=== PATIENT | female | born 1975 | race Caucasian/White ===

== ENCOUNTER 2018-06-27 13:24 | Emergency (ER) | payer BC ==
[2018-06-27] MEDS ORDERED: NORMAL SALINE 1000 ML 1,000 ML IV ONE (15:00)
--- NOTE | 2018-06-27 15:00 | ER Document Report ---
ED Medical Screen (RME) - General Chief Complaint: General Weakness Stated Complaint: WEAKNESS Time Seen by Provider: 06/27/18 14:47 TRAVEL OUTSIDE OF THE [place] IN LAST 30 DAYS: No - HPI Notes: 06/27/18 14:58 Patient is a 43-year-old female with a history of PE 11 months ago (completed thinners in January) who presents to the ED complaining of dyspnea on exertion over the last 1-2 weeks with development of chest tightness and feeling of palpitations and weakness over the last 2-3 days. Patient states that this feels like when she had a PE previously. Denies any headache, fever, URI, sore throat, cough, abdominal pain, vomiting/ diarrhea, urinary retention, dysuria, hematuria, back pain, loss of control of bowel or bladder, numbness/tingling, saddle anesthesia, muscle paralysis/ weakness, or rash. I have treated and performed a rapid initial assessment of this patient. A comprehensive ED assessment and evaluation of the patient, analysis of test results and completion of medical decision making process will be conducted by additional ED providers. Reviewed with Dr. De Jesus who recommends CTA being ordered. PHYSICAL EXAMINATION: GENERAL: Well-appearing, well-nourished and in no acute distress. A&Ox4. Answers questions appropriately. LUNGS: Breath sounds clear to auscultation bilaterally and equal. No wheezes rales or rhonchi. HEART: Regular rate and rhythm without murmurs, rubs, gallops. Extremities: No cyanosis, clubbing, or edema b/l. Eze neg b/l. No asymmetry. NEUROLOGICAL: Normal speech, normal gait. PSYCH: Normal mood, normal affect. - Related Data Allergies/Adverse Reactions: amoxicillin [Amoxicillin] Allergy (Intermediate, Verified 06/27/18 13:25) RASH Sulfa (Sulfonamide Antibiotics) Allergy (Intermediate, Verified 06/27/18 13:25) UNKNOWN aspirin Allergy (Verified 06/27/18 13:25) gabapentin [From Neurontin] Allergy (Verified 06/27/18 13:25) EGGS Allergy (Uncoded 06/27/18 13:25) Past Medical History - Social History Chew tobacco use (# tins/day): No Frequency of alcohol use: None Drug Abuse: None - Past Medical History Cardiac Medical History: Denies: Hx Coronary Artery Disease, Hx Heart Attack, Hx Hypertension Pulmonary Medical History: Reports: Hx Asthma, Hx Pneumonia Denies: Hx Bronchitis, Hx COPD Neurological Medical History: Denies: Hx Cerebrovascular Accident, Hx Seizures Renal/ Medical History: Denies: Hx Peritoneal Dialysis Musculoskeltal Medical History: Denies Hx Arthritis Past Surgical History: Denies: Hx Hysterectomy, Hx Pacemaker - Immunizations Hx Diphtheria, Pertussis, Tetanus Vaccination: Yes Physical Exam - Vital signs Vitals: Temp Pulse Resp BP Pulse Ox 98.2 F 94 16 128/68 H 99 06/27/18 14:12 06/27/18 14:12 06/27/18 14:12 06/27/18 14:12 06/27/18 14:12 Course - Vital Signs Vital signs: Temp Pulse Resp BP Pulse Ox 98.2 F 94 16 128/68 H 99 06/27/18 14:12 06/27/18 14:12 06/27/18 14:12 06/27/18 14:12 06/27/18 14:12 Doctor's Discharge - Discharge Referrals: LOCALMD,NO [Primary Care Provider] - Follow up as needed
[2018-06-27 15:58] LABS: ABSOLUTE BASOPHILS # (AUTO) 0.1 10^3/uL (0.0-0.2); ABSOLUTE EOSINOPHILS # (AUTO) 0.2 10^3/uL (0.0-0.6); ABSOLUTE LYMPHOCYTES (AUTO) 1.9 10^3/uL (0.5-4.7); ABSOLUTE MONOCYTES (AUTO) 0.6 10^3/uL (0.1-1.4); ABSOLUTE NEUT (AUTO) 6.6 10^3/uL (1.7-8.2); BASOPHILS % (AUTO) 0.8 % (0-2); EOSINOPHILS % (AUTO) 1.9 % (0-6); HEMOGLOBIN 9.4 g/dL (12.0-15.5); MEAN CORPUSCULAR HEMOGLOBIN 20.8 pg (27.0-33.4); MEAN CORPUSCULAR HGB CONC 30.2 g/dL (32.0-36.0); MEAN CORPUSCULAR VOLUME 69 fl (80-97); MONOCYTES % (AUTO) 6.8 % (3-13); PLATELET COUNT 414 10^3/uL (150-450); RED BLOOD COUNT 4.49 10^6/uL (3.72-5.28); RED CELL DISTRIBUTION WIDTH 20.6 % (11.5-14.0); SEGMENTED NEUTROPHILS % (AUTO) 70.5 % (42-78); TOTAL CELLS COUNTED % (AUTO) 100 %; WHITE BLOOD COUNT 9.4 10^3/uL (4.0-10.5)
[2018-06-27 16:18] LABS: ALANINE AMINOTRANSFERASE 12 U/L (9-52); ALBUMIN 3.8 g/dL (3.5-5.0); ALKALINE PHOSPHATASE 63 U/L (38-126); ANION GAP 10 (5-19); ASPARTATE AMINO TRANSFERASE 13 U/L (14-36); BILIRUBIN,DIRECT 0.2 mg/dL (0.0-0.4); BILIRUBIN,TOTAL 0.2 mg/dL (0.2-1.3); BLOOD UREA NITROGEN 12 mg/dL (7-20); CARBON DIOXIDE 25 mmol/L (22-30); CHLORIDE 104 mmol/L (98-107); GLUCOSE 122 mg/dL (75-110); POTASSIUM 4.3 mmol/L (3.6-5.0); SODIUM 139.3 mmol/L (137-145); TOTAL PROTEIN 7.2 g/dL (6.3-8.2)
--- NOTE | 2018-06-27 16:28 | RADIOLOGY REPORT (SQ) ---
EXAM DESCRIPTION: CHEST SINGLE VIEW COMPLETED DATE/TIME: 06/27/2018 4:18 pm REASON FOR STUDY: chest pain COMPARISON: None. EXAM PARAMETERS: NUMBER OF VIEWS: One view. TECHNIQUE: Single frontal radiographic view of the chest acquired. RADIATION DOSE: NA LIMITATIONS: None. FINDINGS: LUNGS AND PLEURA: No opacities, masses or pneumothorax. No pleural effusion. MEDIASTINUM AND HILAR STRUCTURES: No masses. Contour normal. HEART AND VASCULAR STRUCTURES: Heart normal in size. Normal vasculature. BONES: No acute findings. HARDWARE: None in the chest. OTHER: No other significant finding. IMPRESSION: NO ACUTE RADIOGRAPHIC FINDING IN THE CHEST. TECHNICAL DOCUMENTATION: JOB ID: [id number] [employer]- All Rights Reserved Reading location - IP/workstation name: [id number]
[2018-06-27 16:37] LABS: NT PRO BNP 77 pg/mL (<125)
[2018-06-27 16:39] LABS: TROPONIN I < 0.012 ng/mL
--- NOTE | 2018-06-27 16:53 | RADIOLOGY REPORT (SQ) ---
EXAM DESCRIPTION: CTA CHEST COMPLETED DATE/TIME: 06/27/2018 4:42 pm REASON FOR STUDY: BAILEY, Chest pressure, h/o PE COMPARISON: None. TECHNIQUE: CT scan of the chest performed using helical scanning technique with dynamic intravenous contrast injection. Images reviewed with lung, soft tissue and bone windows. Reconstructed coronal and sagittal MPR images reviewed. Additional 3 dimensional post-processing performed to develop Maximal Intensity Projection images (RI P). All images stored on PACS. All CT scanners at this facility use dose modulation, iterative reconstruction, and/or weight based d osing when appropriate to reduce radiation dose to as low as reasonably achievable (ALARA). [facility]: Dose Right [facility]: CareDose [facility]: Dose Right [facility]: Teradose 4D [facility]: Overblog CONTRAST TYPE AND DOSE: contrast/concentration: Isovue 350.00 mg/ml; Total Contrast Delivered: 102.0 ml; Total Saline Delivered: 80.0 ml Contrast bolus optimized for the pulmonary arteries and aorta. RENAL FUNCTION: Creatinine 0.9 RADIATION DOSE: CT Rad equipment meets quality standard of care and radiation dose reduction techniq ues were employed. CTDIvol: 24.8 - 33.6 mGy. DLP: 1286 mGy-cm. . LIMITATIONS: None. FINDINGS: LUNGS AND PLEURA: No masses, infiltrates, or pneumothorax. No pleural effusions or pleura l calcifications. AORTA AND GREAT VESSELS: No aneurysm. Contrast bolus not optimized for the aorta. HEART: No pericardial effusion. No significant coronary artery calcifications. PULMONARY ARTERIES: No emboli visualized in the main pulmonary arteries or the segmental branches. HILAR AND MEDIASTINAL STRUCTURES: No identified masses or abnormal nodes. Moderate size retrocardiac hiatal hernia HARDWARE: None in the chest. UPPER ABDOMEN: Benign 3 cm cyst left lobe liver. THYROID AND OTHER SOFT TISSUES: No masses. No adenopathy. BONES: No acute or significant finding. 3D MIPS: Confirm above findings. OTHER: No other significant finding. IMPRESSION: NORMAL CTA OF THE CHEST. NO PULMONARY EMBOLI. COMMENT: Quality ID # [id number]: Final reports with documentation of one or more dose reduction techniques (e.g., Automated exposure control, adjustment of the mA and/or kV according to patient size, use of iterative reconstruction technique) TECHNICAL DOCUMENTATION: JOB ID: [id number] [employer]- All Rights Reserved Reading location - IP/workstation name: [email or web address]
--- NOTE | 2018-06-27 18:19 | ER Document Report ---
ED General - General Chief Complaint: General Weakness Stated Complaint: WEAKNESS Time Seen by Provider: 06/27/18 14:47 TRAVEL OUTSIDE OF THE [place] IN LAST 30 DAYS: No - HPI Notes: 43-year-old female presents with multiple complaints over the past 2 weeks. She reports initially having vomiting and diarrhea last week. Since then she has had continued generalized weakness with excessive sleepiness. She reports coming home from work early, sleeping all day and then all night. She states this is very unlike her. She has shortness of breath with any exertion with frequent palpitations. She denies fevers, but has had chills and diaphoresis. She reports occasional chest pain. She has had a mild cough that is nonproductive. She denies any abdominal pain or pain with urination. She has a history of pulmonary embolism and is no longer taking anticoagulants. - Related Data Allergies/Adverse Reactions: amoxicillin [Amoxicillin] Allergy (Intermediate, Verified 06/27/18 13:25) RASH Sulfa (Sulfonamide Antibiotics) Allergy (Intermediate, Verified 06/27/18 13:25) UNKNOWN aspirin Allergy (Verified 06/27/18 13:25) gabapentin [From Neurontin] Allergy (Verified 06/27/18 13:25) EGGS Allergy (Uncoded 06/27/18 13:25) Past Medical History - Social History Smoking Status: Never Smoker Chew tobacco use (# tins/day): No Frequency of alcohol use: None Drug Abuse: None Family History: Reviewed & Not Pertinent Patient has suicidal ideation: No Patient has homicidal ideation: No - Past Medical History Cardiac Medical History: Denies: Hx Coronary Artery Disease, Hx Heart Attack, Hx Hypertension Pulmonary Medical History: Reports: Hx Asthma, Hx Pneumonia Denies: Hx Bronchitis, Hx COPD Neurological Medical History: Denies: Hx Cerebrovascular Accident, Hx Seizures Renal/ Medical History: Denies: Hx Peritoneal Dialysis Musculoskeletal Medical History: Denies Hx Arthritis Past Surgical History: Denies: Hx Hysterectomy, Hx Pacemaker - Immunizations Hx Diphtheria, Pertussis, Tetanus Vaccination: Yes Review of Systems - Review of Systems Notes: Constitutional: Negative for fever. Positive for fatigue and sweats HENT: Negative for sore throat. Eyes: Negative for visual changes. Cardiovascular: Positive for chest pain. Respiratory: Positive for shortness of breath. Gastrointestinal: Negative for abdominal pain, positive for vomiting and diarrhea that have resolved Genitourinary: Negative for dysuria. Musculoskeletal: Negative for back pain. Skin: Negative for rash. Neurological: Negative for headaches, weakness or numbness. 10 point ROS negative except as marked above and in HPI. Physical Exam - Vital signs Vitals: Temp Pulse Resp BP Pulse Ox 98.2 F 94 16 128/68 H 99 06/27/18 14:12 06/27/18 14:12 06/27/18 14:12 06/27/18 14:12 06/27/18 14:12 - Notes Notes: PHYSICAL EXAMINATION: GENERAL: Well-appearing, well-nourished and in no acute distress. Morbid obesity HEAD: Atraumatic, normocephalic. EYES: Pupils equal round and reactive to light, extraocular movements intact, conjunctiva are normal. ENT: nares patent, oropharynx clear without exudates. Moist mucous membranes. NECK: Normal range of motion, supple without lymphadenopathy LUNGS: Breath sounds clear to auscultation bilaterally and equal. No wheezes rales or rhonchi. HEART: Regular rate and rhythm, no chest wall tenderness ABDOMEN: Soft, nontender, normoactive bowel sounds. No guarding, no rebound. No masses appreciated. EXTREMITIES: Normal range of motion, no pitting or edema. No cyanosis. NEUROLOGICAL: Cranial nerves grossly intact. Normal speech, normal gait. Normal sensory and motor exams. PSYCH: Normal mood, normal affect. SKIN: Warm, Dry, normal turgor, no rashes or lesions noted. Course - Re-evaluation Re-evalutation: 06/27/18 18:22 Exam unremarkable. Will add mono and TSH. CTA ordered in triage and was negative. 06/27/18 21:02 Patient reports no change after fluids. [place] and TSH normal. Repeat troponin normal. Advised primary care follow-up. Patient known to have chronic anemia. At this time will discharge with return precautions and follow-up recommendations. Verbal discharge instructions given a the bedside and opportunity for questions given. Medication warnings reviewed. Patient is in agreement with this plan and has verbalized understanding of return precautions and the need for primary care follow-up in the next 24-72 hours. Voice dictation software was used. Chart was reviewed, but errors may exist. 06/27/18 21:02 - Vital Signs Vital signs: Temp Pulse Resp BP Pulse Ox 98.2 F 94 17 125/77 100 06/27/18 14:12 06/27/18 14:12 06/27/18 20:10 06/27/18 20:10 06/27/18 20:10 - Laboratory Result Diagrams: 06/27/18 15:42 06/27/18 15:42 Laboratory results interpreted by me: 06/27/18 06/27/18 15:42 15:42 Hgb 9.4 L Hct 31.0 L MCV 69 L MCH 20.8 L MCHC 30.2 L RDW 20.6 H Glucose 122 H AST 13 L Discharge - Discharge Clinical Impression: Fatigue Qualifiers: Fatigue type: unspecified Qualified Code(s): R53.83 - Other fatigue Condition: Stable Disposition: HOME, SELF-CARE Instructions: Fatigue ([facility]) Additional Instructions: Drink plenty of fluids. Return for worsening or concerning symptoms. Continue iron supplements. Referrals: LOCALMD,NO [NO LOCAL MD] - Follow up in 3-5 days
--- NOTE | 2018-06-27 18:46 | EKG REPORT ---
SEVERITY:- BORDERLINE ECG - SINUS RHYTHM NONSPECIFIC ST-T CHANGES- INFERIOR LEADS : Confirmed by: Damien Lang MD 27-Jun-2018 18:45:56
[2018-06-27 21:11] VITALS: BP 128/86
== END 2018-06-27 21:11 | disposition home or self-care (01) ==
LOC: ER 13:24
DX: R53.83 Other fatigue (principal); R53.1 Weakness; R06.02 Shortness of breath; R00.2 Palpitations; R68.83 Chills (without fever); R61 Generalized hyperhidrosis; R07.9 Chest pain, unspecified; R05 Cough; J45.909 Unspecified asthma, uncomplicated; Z86.711 Personal history of pulmonary embolism; Z88.0 Allergy status to penicillin; Z88.2 Allergy status to sulfonamides; Z88.6 Allergy status to analgesic agent; Z91.012 Allergy to eggs
CPT/HCPCS: 93005; 99285; 96360; 96361; 36415; 84443; 85025; 86308; 80053; 84484; 83880; 71045; 71275; 93010; J7030

== ENCOUNTER 2018-10-28 10:13 | Emergency (ER) | payer BC ==
[2018-10-28] MEDS ORDERED: SENNOSIDES/DOCUSATE 8.6-50 MG 1 EACH TABLET PO ONE (10:54)
[2018-10-28] MEDS ORDERED: DOCUSATE SODIUM 100 MG CAPSULE PO ONE (10:54)
--- NOTE | 2018-10-28 10:54 | ER Document Report ---
ED Medical Screen (RME) - General Chief Complaint: Constipation Stated Complaint: FEVER Time Seen by Provider: 10/28/18 10:45 Notes: RAPID MEDICAL EVALUATION DISCLOSURE I have seen this patient as part of a Rapid Medical Evaluation and, if appl icable, placed any initially appropriate orders. The patient will be seen and fully evaluated, including a full history and physical exam, by a provider (in Main ED or Fast Track) when a room becomes available. 43-year-old female PMH iron deficiency anemia here with complaints of constipation for the past few weeks. She reports having bowel movements consisting of "small pellets" and her last bowel movement was yesterday. She has been taking iron pills and has also been taking daily powder laxative but states this has not helped. She has required blood transfusions in the past. She also reports having had lightheadedness and generalized weakness over the past few weeks. Her abdominal pain is "all over". No vomiting or urinary symptoms. EXAM CTAB RRR Minimal abdominal TTP diffusely No peritoneal signs TRAVEL OUTSIDE OF THE [place] IN LAST 30 DAYS: No - Related Data Allergies/Adverse Reactions: amoxicillin [Amoxicillin] Allergy (Intermediate, Verified 10/28/18 10:15) RASH Sulfa (Sulfonamide Antibiotics) Allergy (Intermediate, Verified 10/28/18 10:15) UNKNOWN aspirin Allergy (Verified 10/28/18 10:15) gabapentin [From Neurontin] Allergy (Verified 10/28/18 10:15) EGGS Allergy (Uncoded 10/28/18 10:15) Past Medical History - Social History Chew tobacco use (# tins/day): No Frequency of alcohol use: None Drug Abuse: None - Past Medical History Cardiac Medical History: Denies: Hx Coronary Artery Disease, Hx Heart Attack, Hx Hypertension Pulmonary Medical History: Reports: Hx Asthma, Hx Pneumonia Denies: Hx Bronchitis, Hx COPD Neurological Medical History: Denies: Hx Cerebrovascular Accident, Hx Seizures Renal/ Medical History: Denies: Hx Peritoneal Dialysis Musculoskeltal Medical History: Denies Hx Arthritis Past Surgical History: Denies: Hx Hysterectomy, Hx Pacemaker - Immunizations Hx Diphtheria, Pertussis, Tetanus Vaccination: Yes Physical Exam - Vital signs Vitals: Temp Pulse Resp BP Pulse Ox 98.4 F 99 18 127/81 H 98 10/28/18 10:25 10/28/18 10:25 10/28/18 10:25 10/28/18 10:25 10/28/18 10:25 Course - Vital Signs Vital signs: Temp Pulse Resp BP Pulse Ox 98.4 F 99 18 127/81 H 98 10/28/18 10:25 10/28/18 10:25 10/28/18 10:25 10/28/18 10:25 10/28/18 10:25 Doctor's Discharge - Discharge Referrals: AMANDA PIEDRA,LES Franco PAChaseC [Primary Care Provider] - Follow up as needed
[2018-10-28 11:37] LABS: ABSOLUTE EOSINOPHILS # (AUTO) 0.1 10^3/uL (0.0-0.6); ABSOLUTE LYMPHOCYTES (AUTO) 1.5 10^3/uL (0.5-4.7); ABSOLUTE MONOCYTES (AUTO) 0.6 10^3/uL (0.1-1.4); ABSOLUTE NEUT (AUTO) 6.1 10^3/uL (1.7-8.2); BASOPHILS % (AUTO) 0.5 % (0-2); EOSINOPHILS % (AUTO) 1.6 % (0-6); HEMATOCRIT 34.9 % (36.0-47.0); HEMOGLOBIN 10.9 g/dL (12.0-15.5); LYMPHOCYTES % (AUTO) 18.2 % (13-45); MEAN CORPUSCULAR HEMOGLOBIN 22.8 pg (27.0-33.4); MEAN CORPUSCULAR HGB CONC 31.3 g/dL (32.0-36.0); MEAN CORPUSCULAR VOLUME 73 fl (80-97); MONOCYTES % (AUTO) 6.8 % (3-13); PLATELET COUNT 375 10^3/uL (150-450); RED BLOOD COUNT 4.79 10^6/uL (3.72-5.28); RED CELL DISTRIBUTION WIDTH 26.7 % (11.5-14.0); SEGMENTED NEUTROPHILS % (AUTO) 72.9 % (42-78); TOTAL CELLS COUNTED % (AUTO) 100 %; WHITE BLOOD COUNT 8.4 10^3/uL (4.0-10.5)
[2018-10-28 11:49] LABS: ALANINE AMINOTRANSFERASE 8 U/L (9-52); ALBUMIN 4.1 g/dL (3.5-5.0); ALKALINE PHOSPHATASE 75 U/L (38-126); ANION GAP 10 (5-19); ASPARTATE AMINO TRANSFERASE 14 U/L (14-36); BILIRUBIN,DIRECT 0.2 mg/dL (0.0-0.4); BILIRUBIN,TOTAL 0.2 mg/dL (0.2-1.3); BLOOD UREA NITROGEN 10 mg/dL (7-20); CALCIUM 9.3 mg/dL (8.4-10.2); CARBON DIOXIDE 25 mmol/L (22-30); CHLORIDE 106 mmol/L (98-107); GLUCOSE 102 mg/dL (75-110); LIPASE 149.1 U/L (23-300); POTASSIUM 4.4 mmol/L (3.6-5.0); SODIUM 140.5 mmol/L (137-145); TOTAL PROTEIN 7.1 g/dL (6.3-8.2)
[2018-10-28] MEDS ORDERED: NORMAL SALINE 1000 ML 1,000 ML IV ONE (12:03)
[2018-10-28 12:04] LABS: APPEARANCE,URINE CLEAR; BILIRUBIN,URINE NEGATIVE (NEGATIVE); COLOR,URINE YELLOW; GLUCOSE, URINE NEGATIVE (NEGATIVE); KETONES,URINE NEGATIVE (NEGATIVE); LEUKOCYTE ESTERASE,URINE NEGATIVE (NEGATIVE); NITRITE,URINE NEGATIVE (NEGATIVE); PROTEIN,URINE NEGATIVE (NEGATIVE); URINE SPECIFIC GRAVITY 1.018; UROBILINOGEN,URINE NEGATIVE mg/dL (<2.0)
--- NOTE | 2018-10-28 12:04 | RADIOLOGY REPORT (SQ) ---
EXAM DESCRIPTION: ACUTE ABDOMEN SERIES COMPLETED DATE/TIME: 10/28/2018 11:55 am REASON FOR STUDY: constipation, fevers COMPARISON: None. NUMBER OF VIEWS: Three views. TECHNIQUE: Frontal chest, supine abdomen and upright/decubitus abdomen radiographic images acquired. LIMITATIONS: None. FINDINGS: CHEST: Lungs clear of infiltrates. FREE AIR: None. No abnormal gas collections. BOWEL GAS PATTERN: Abundant fecal material throughout nondilated colon. CALCIFICATIONS: No suspicious calcifications. HARDWARE: None in the abdomen. SOFT TISSUES: No gross mass or suggestion of organomegaly. BONES: No acute fracture. No worrisome bone lesions. OTHER: No other significant finding. IMPRESSION: Moderate fecal retention. TECHNICAL DOCUMENTATION: JOB ID: [id number] [employer]- All Rights Reserved Reading location - IP/workstation name: [email or web address]
--- NOTE | 2018-10-28 12:04 | ER Document Report ---
ED GI/ - General Chief Complaint: Constipation Stated Complaint: FEVER Time Seen by Provider: 10/28/18 10:45 Mode of Arrival: Ambulatory Information source: Patient Notes: Patient presents complaining of fever for the past 4 days with constipation symptoms and abdominal tenderness. Patient reports abdominal distention. Patient reports last bowel movement was yesterday but was just very small hard formed stool. Patient denies any cough congestion, nausea or vomiting. Patient is uncertain where her fever symptoms may be coming from. TRAVEL OUTSIDE OF THE [place] IN LAST 30 DAYS: No - HPI Patient complains to provider of: Abdominal pain, Other - Fever. No: Vomiting Onset: Other - 4 days Timing/Duration: Persistent Quality of pain: Fullness, Pressure Pain Level: 3 Location: Other - Generalized abdomen Associated symptoms: Constipation, Fever, Loss of appetite. denies: Chest pain, Diarrhea, Dysuria, Nausea, Urinary hesitancy, Urinary frequency, Urinary retention, Vomiting Exacerbated by: Denies Relieved by: Denies Similar symptoms previously: No Recently seen / treated by doctor: No - Related Data Allergies/Adverse Reactions: amoxicillin [Amoxicillin] Allergy (Intermediate, Verified 10/28/18 10:15) RASH Sulfa (Sulfonamide Antibiotics) Allergy (Intermediate, Verified 10/28/18 10:15) UNKNOWN aspirin Allergy (Verified 10/28/18 10:15) gabapentin [From Neurontin] Allergy (Verified 10/28/18 10:15) EGGS Allergy (Uncoded 10/28/18 10:15) Past Medical History - General Information source: Patient - Social History Smoking Status: Never Smoker Chew tobacco use (# tins/day): No Frequency of alcohol use: None Drug Abuse: None Occupation: [employer] Lives with: Family Family History: Reviewed & Not Pertinent Patient has suicidal ideation: No Patient has homicidal ideation: No - Medical History Medical History: Other - Anemia Pulmonary Medical History: Reports: Hx Asthma, Hx Pneumonia Renal/ Medical History: Denies: Hx Peritoneal Dialysis GI Medical History: Reports: Hx Diverticulitis, Hx Gastroesophageal Reflux Disease Musculoskeletal Medical History: Denies Hx Arthritis Past Surgical History: Reports: Hx Section, Hx Tubal Ligation. Denies: Hx Hysterectomy, Hx Pacemaker - Immunizations Hx Diphtheria, Pertussis, Tetanus Vaccination: Yes Review of Systems - Review of Systems Constitutional: Fever. denies: Recent illness EENT: No symptoms reported Cardiovascular: No symptoms reported. denies: Chest pain, Syncope, Dizziness Respiratory: No symptoms reported. denies: Cough, Short of breath Gastrointestinal: Abdominal pain, Constipation, Poor appetite. denies: Diarrhea, Nausea, Vomiting, Black stools Genitourinary: No symptoms reported. denies: Dysuria, Flank pain Female Genitourinary: No symptoms reported Musculoskeletal: No symptoms reported. denies: Back pain Skin: No symptoms reported Hematologic/Lymphatic: No symptoms reported Neurological/Psychological: No symptoms reported Physical Exam - Vital signs Vitals: Temp Pulse Resp BP Pulse Ox 98.4 F 99 18 127/81 H 98 10/28/18 10:25 10/28/18 10:25 10/28/18 10:25 10/28/18 10:25 10/28/18 10:25 - General General appearance: Appears well, Alert In distress: None - HEENT Head: Normocephalic, Atraumatic Eyes: Normal Conjunctiva: Normal Nasal: Normal Mouth/Lips: Normal Mucous membranes: Normal Neck: Normal, Supple. No: Lymphadenopathy - Respiratory Respiratory status: No respiratory distress Chest status: Nontender Breath sounds: Normal. No: Rales, Rhonchi, Stridor, Wheezing Chest palpation: Normal - Cardiovascular Rhythm: Regular Heart sounds: S1 appreciated, S2 appreciated Murmur: No - Abdominal Inspection: Morbidly Obese Distension: No distension Bowel sounds: Hypoactive Tenderness: Tender - LLQ. No: McBurney's point, Pemberton's sign, Guarding - Back Back: CVA tenderness - right. No: Vertebra tenderness - Extremities General upper extremity: Normal inspection, Normal strength General lower extremity: Normal inspection, Normal strength - Neurological Neuro grossly intact: Yes Cognition: Normal Nita Coma Scale Eye Opening: Spontaneous [place] Coma Scale Verbal: Oriented [place] Coma Scale Motor: Obeys Commands Nita Coma Scale Total: 15 - Psychological Associated symptoms: Normal affect, Normal mood - Skin Skin Temperature: Warm Skin Moisture: Dry Skin Color: Normal Course - Re-evaluation Re-evalutation: 10/28/18 15:34 Patient complains of continued abdominal discomfort feeling bloated. Patient without any fever here today. CT scan reviewed, no concern for any inflammatory bowel process, diverticulitis or obstructive uropathy. We will treat for patient's constipation symptoms at this time. 10/28/18 15:35 Patient presents with abdominal pain without signs of peritonitis or other life- threatening or serious etiology. Patient appears stable for discharge and has been instructed to return immediately if the symptoms worsen in any way, for reevaluation. The patient has been instructed to return if the symptoms worsen or change in any way. - Vital Signs Vital signs: Temp Pulse Resp BP Pulse Ox 98.1 F 85 18 126/61 H 99 10/28/18 17:51 10/28/18 17:51 10/28/18 17:51 10/28/18 17:51 10/28/18 17:51 - Laboratory Result Diagrams: 10/28/18 11:06 10/28/18 11:06 Laboratory results interpreted by me: 10/28/18 10/28/18 10/28/18 11:06 11:06 11:06 Hgb 10.9 L Hct 34.9 L MCV 73 L MCH 22.8 L MCHC 31.3 L RDW 26.7 H ALT 8 L Urine Blood SMALL H 10/28/18 15:35 Labs- Entire Visit 10/28/18 10/28/18 10/28/18 11:06 11:06 11:06 WBC 8.4 RBC 4.79 Hgb 10.9 L Hct 34.9 L MCV 73 L MCH 22.8 L MCHC 31.3 L RDW 26.7 H Plt Count 375 Seg Neutrophils % 72.9 Lymphocytes % 18.2 Monocytes % 6.8 Eosinophils % 1.6 Basophils % 0.5 Absolute Neutrophils 6.1 Absolute Lymphocytes 1.5 Absolute Monocytes 0.6 Absolute Eosinophils 0.1 Absolute Basophils 0.0 Platelet Comment ADEQUATE Polychromasia SLIGHT Hypochromasia 1+ Poikilocytosis 1+ Anisocytosis 2+ Microcytosis 2+ Ovalocytes 1+ Julissa Cells SLIGHT Sodium 140.5 Potassium 4.4 Chloride 106 Carbon Dioxide 25 Anion Gap 10 BUN 10 Creatinine 0.78 Est GFR ( Amer) > 60 Est GFR (Non-Af Amer) > 60 Glucose 102 Calcium 9.3 Magnesium 2.0 Total Bilirubin 0.2 Direct Bilirubin 0.2 Neonat Total Bilirubin Not Reportable Neonat Direct Bilirubin Not Reportable Neonat Indirect Bili Not Reportable AST 14 ALT 8 L Alkaline Phosphatase 75 Total Protein 7.1 Albumin 4.1 Lipase 149.1 Urine Color YELLOW Urine Appearance CLEAR Urine pH 5.0 Ur Specific [place] 1.018 Urine Protein NEGATIVE Urine Glucose (UA) NEGATIVE Urine Ketones NEGATIVE Urine Blood SMALL H Urine Nitrite NEGATIVE Urine Bilirubin NEGATIVE Urine Urobilinogen NEGATIVE Ur Leukocyte Esterase NEGATIVE Urine WBC (Auto) 1 Urine RBC (Auto) 0 Urine Bacteria (Auto) TRACE Squamous Epi Cells Auto 1 Urine Mucus (Auto) RARE Urine Ascorbic Acid NEGATIVE Urine HCG, Qual 10/28/18 11:06 WBC RBC Hgb Hct MCV MCH MCHC RDW Plt Count Seg Neutrophils % Lymphocytes % Monocytes % Eosinophils % Basophils % Absolute Neutrophils Absolute Lymphocytes Absolute Monocytes Absolute Eosinophils Absolute Basophils Platelet Comment Polychromasia Hypochromasia Poikilocytosis Anisocytosis Microcytosis Ovalocytes [place] Cells Sodium Potassium Chloride Carbon Dioxide Anion Gap BUN Creatinine Est GFR ( Amer) Est GFR (Non-Af Amer) Glucose Calcium Magnesium Total Bilirubin Direct Bilirubin Neonat Total Bilirubin Neonat Direct Bilirubin Neonat Indirect Bili AST ALT Alkaline Phosphatase Total Protein Albumin Lipase Urine Color Urine Appearance Urine pH Ur Specific [place] Urine Protein Urine Glucose (UA) Urine Ketones Urine Blood Urine Nitrite Urine Bilirubin Urine Urobilinogen Ur Leukocyte Esterase Urine WBC (Auto) Urine RBC (Auto) Urine Bacteria (Auto) Squamous Epi Cells Auto Urine Mucus (Auto) Urine Ascorbic Acid Urine HCG, Qual NEGATIVE - Diagnostic Test Radiology reviewed: Reports reviewed Discharge - Discharge Clinical Impression: Abdominal pain Qualifiers: Abdominal location: unspecified location Qualified Code(s): R10.9 - Unspecified abdominal pain Constipation Qualifiers: Constipation type: unspecified constipation type Qualified Code(s): K59.00 - Constipation, unspecified Condition: Stable Disposition: HOME, SELF-CARE Instructions: Abdominal Pain ([facility]), Constipation ([facility]) Additional Instructions: Return immediately for any new or worsening symptoms Followup with your primary care provider, call tomorrow to make a followup appointment Continue to take your MiraLAX that you have at home as prescribed Referrals: LES PATEL II, PA-C [Primary Care Provider] - Follow up as needed
[2018-10-28 12:08] LABS: ANISOCYTOSIS 2+; BURR CELLS SLIGHT; HYPOCHROMASIA 1+; OVALOCYTES 1+; PLATELET COMMENT ADEQUATE; POIKILOCYTOSIS 1+; POLYCHROMASIA SLIGHT
--- NOTE | 2018-10-28 15:18 | RADIOLOGY REPORT (SQ) ---
EXAM DESCRIPTION: CT ABD/PELVIS WITH IV ORAL COMPLETED DATE/TIME: 10/28/2018 3:00 pm REASON FOR STUDY: fever, abd pain COMPARISON: CTA chest 06/29/2018 TECHNIQUE: CT scan of the abdomen and pelvis performed using helical scanning technique with dynamic intravenous contrast injection. Oral contrast. Images reviewed with lung, soft tissue, and bone win dows. Reconstructed coronal and sagittal MPR images reviewed. Delayed images for evaluation of the ur inary system also acquired. All images stored on PACS. All CT scanners at this facility use dose modulation, iterative reconstruction, and/or weight based d osing when appropriate to reduce radiation dose to as low as reasonably achievable (ALARA). [facility]: Dose Right [facility]: CareDose [facility]: Dose Right [facility]: Teradose 4D [facility]: [employer] CONTRAST TYPE AND DOSE: contrast/concentration: Isovue 350.00 mg/ml; Total Contrast Delivered: 100.0 ml; Total Saline Delivered: 70.0 ml RENAL FUNCTION: BUN 10 creatinine 0.8 RADIATION DOSE: CT Rad equipment meets quality standard of care and radiation dose reduction techniq ues were employed. CTDIvol: 20.5 - 21.0 mGy. DLP: 2403 mGy-cm.. LIMITATIONS: None. FINDINGS: LOWER CHEST: Small hiatal hernia. LIVER: 3 cm cyst is unchanged. SPLEEN: Normal size. No focal lesions. PANCREAS: No masses. No significant calcifications. No adjacent inflammation or peripancreatic fluid collections. Pancreatic duct not dilated. GALLBLADDER: No identified stones by CT criteria. No inflammatory changes to suggest cholecystitis. ADRENAL GLANDS: No significant masses or asymmetry. RIGHT KIDNEY AND URETER: No solid masses. No significant calcifications. No hydronephrosis or hyd roureter. LEFT KIDNEY AND URETER: No solid masses. No significant calcifications. No hydronephrosis or hydr oureter. AORTA AND VESSELS: No aneurysm. No dissection. Renal arteries, SMA, celiac without stenosis. RETROPERITONEUM: No retroperitoneal adenopathy, hemorrhage or masses. BOWEL AND PERITONEAL CAVITY: No masses or inflammatory changes. No free fluid or peritoneal masses. APPENDIX: Not identified. PELVIS: No mass. No free fluid. Normal bladder. ABDOMINAL WALL: No masses. No hernias. BONES: No significant or acute findings. OTHER: No other significant finding. IMPRESSION: No acute findings in the abdomen or pelvis. Stable hepatic cyst. Small hiatal hernia. TECHNICAL DOCUMENTATION: JOB ID: [id number] Quality ID # [id number]: Final reports with documentation of one or more dose reduction techniques (e.g., Au tomated exposure control, adjustment of the mA and/or kV according to patient size, use of iterative reconstruction technique) 2010 [employer]- All Rights Reserved Reading location - IP/workstation name: [email or web address]
[2018-10-28] MEDS ORDERED: MINERAL OIL 30 ML UDCUP PR ONE (15:34)
[2018-10-28] MEDS ORDERED: MAGNESIUM CITRATE 296 ML BOTTLE PO ONE (15:34)
[2018-10-28 17:52] VITALS: BP 126/61
== END 2018-10-28 17:53 | disposition home or self-care (01) ==
LOC: ER 10:13
DX: K59.00 Constipation, unspecified (principal); R10.9 Unspecified abdominal pain; R50.9 Fever, unspecified; Z88.0 Allergy status to penicillin; Z88.2 Allergy status to sulfonamides; Z88.6 Allergy status to analgesic agent; Z98.51 Tubal ligation status
CPT/HCPCS: 99284; 96360; 96361; 36415; 87040; 83690; 83735; 85025; 81025; 80053; 81001; 74022; 74177; J3490 ×2; J7030

== ENCOUNTER 2019-03-05 12:30 | Emergency (ER) | payer BC ==
--- NOTE | 2019-03-05 13:35 | ER Document Report ---
ED Medical Screen (RME) - General Chief Complaint: Abdominal Pain Stated Complaint: SIDE PAIN Time Seen by Provider: 03/05/19 13:30 Primary Care Provider: LES PATEL II, PA-C [Primary Care Provider] - Follow up as needed Mode of Arrival: Ambulatory Information source: Patient Notes: Patient presents emergency department with complaints of right-sided pain. Reports it hurts so much she cannot lay on that side. Reduced intake. Denies fever vomiting diarrhea. Reports pain for the past 2 to 3 weeks. Reports she has been seen by her primary care provider and [facility]. They do not know what is wrong with her. She denies other symptoms such as pain with void. I have greeted and performed a rapid initial assessment of this patient. A comprehensive ED assessment and evaluation of the patient, analysis of test results and completion of the medical decision making process will be conducted by additional ED providers. Dictation of this chart was performed using voice recognition software; therefore, there may be some unintended grammatical errors. TRAVEL OUTSIDE OF THE [place] IN LAST 30 DAYS: No - Related Data Allergies/Adverse Reactions: amoxicillin [Amoxicillin] Allergy (Intermediate, Verified 03/05/19 12:40) RASH Sulfa (Sulfonamide Antibiotics) Allergy (Intermediate, Verified 03/05/19 12:40) UNKNOWN aspirin Allergy (Verified 03/05/19 12:40) gabapentin [From Neurontin] Allergy (Verified 03/05/19 12:40) EGGS Allergy (Uncoded 03/05/19 12:40) Past Medical History - Past Medical History Cardiac Medical History: Denies: Hx Coronary Artery Disease, Hx Heart Attack, Hx Hypertension Pulmonary Medical History: Reports: Hx Asthma, Hx Pneumonia Denies: Hx Bronchitis, Hx COPD Neurological Medical History: Denies: Hx Cerebrovascular Accident, Hx Seizures Renal/ Medical History: Denies: Hx Peritoneal Dialysis GI Medical History: Reports: Hx Diverticulitis, Hx Gastroesophageal Reflux Disease Musculoskeltal Medical History: Denies Hx Arthritis Past Surgical History: Reports: Hx Section, Hx Tubal Ligation. Denies: Hx Hysterectomy, Hx Pacemaker - Immunizations Hx Diphtheria, Pertussis, Tetanus Vaccination: Yes Physical Exam - Vital signs Vitals: Temp Pulse Resp BP Pulse Ox 98.0 F 92 20 136/68 H 98 03/05/19 13:05 03/05/19 13:05 03/05/19 13:05 03/05/19 13:05 03/05/19 13:05 Course - Vital Signs Vital signs: Temp Pulse Resp BP Pulse Ox 98.0 F 92 20 136/68 H 98 03/05/19 13:05 03/05/19 13:05 03/05/19 13:05 03/05/19 13:05 03/05/19 13:05 Doctor's Discharge - Discharge Referrals: AMANDA PIEDRA,LES Franco PA-C [Primary Care Provider] - Follow up as needed
[2019-03-05 13:55] LABS: ABSOLUTE BASOPHILS # (AUTO) 0.1 10^3/uL (0.0-0.2); ABSOLUTE EOSINOPHILS # (AUTO) 0.1 10^3/uL (0.0-0.6); ABSOLUTE LYMPHOCYTES (AUTO) 1.1 10^3/uL (0.5-4.7); ABSOLUTE MONOCYTES (AUTO) 0.5 10^3/uL (0.1-1.4); ABSOLUTE NEUT (AUTO) 4.9 10^3/uL (1.7-8.2); BASOPHILS % (AUTO) 0.9 % (0-2); EOSINOPHILS % (AUTO) 1.3 % (0-6); HEMOGLOBIN 11.9 g/dL (12.0-15.5); LYMPHOCYTES % (AUTO) 16.7 % (13-45); MEAN CORPUSCULAR HEMOGLOBIN 24.4 pg (27.0-33.4); MEAN CORPUSCULAR HGB CONC 31.2 g/dL (32.0-36.0); MEAN CORPUSCULAR VOLUME 78 fl (80-97); MONOCYTES % (AUTO) 7.4 % (3-13); PLATELET COUNT 392 10^3/uL (150-450); RED BLOOD COUNT 4.86 10^6/uL (3.72-5.28); SEGMENTED NEUTROPHILS % (AUTO) 73.7 % (42-78); TOTAL CELLS COUNTED % (AUTO) 100 %; WHITE BLOOD COUNT 6.7 10^3/uL (4.0-10.5)
[2019-03-05 14:10] LABS: APPEARANCE,URINE CLEAR; BILIRUBIN,URINE NEGATIVE (NEGATIVE); COLOR,URINE STRAW; GLUCOSE, URINE NEGATIVE (NEGATIVE); KETONES,URINE NEGATIVE (NEGATIVE); LEUKOCYTE ESTERASE,URINE SMALL (NEGATIVE); NITRITE,URINE NEGATIVE (NEGATIVE); PROTEIN,URINE NEGATIVE (NEGATIVE); URINE SPECIFIC GRAVITY 1.005; UROBILINOGEN,URINE NEGATIVE mg/dL (<2.0)
[2019-03-05 14:15] LABS: ALANINE AMINOTRANSFERASE 26 U/L (9-52); ALKALINE PHOSPHATASE 64 U/L (38-126); ANION GAP 10 (5-19); ASPARTATE AMINO TRANSFERASE 14 U/L (14-36); BILIRUBIN,DIRECT 0.2 mg/dL (0.0-0.4); BILIRUBIN,TOTAL 0.4 mg/dL (0.2-1.3); BLOOD UREA NITROGEN 9 mg/dL (7-20); CALCIUM 9.5 mg/dL (8.4-10.2); CARBON DIOXIDE 30 mmol/L (22-30); CHLORIDE 103 mmol/L (98-107); GLUCOSE 84 mg/dL (75-110); LIPASE 115.9 U/L (23-300); POTASSIUM 4.2 mmol/L (3.6-5.0); SODIUM 142.5 mmol/L (137-145)
--- NOTE | 2019-03-05 15:20 | RADIOLOGY REPORT (SQ) ---
EXAM DESCRIPTION: U/S ABDOMEN LIMITED W/O DOP COMPLETED DATE/TIME: 03/05/2019 2:24 pm REASON FOR STUDY: right side pain COMPARISON: None. TECHNIQUE: Dynamic and static grayscale images acquired of the abdomen and recorded on PACS. Additio nal selected color Doppler and spectral images recorded. LIMITATIONS: None. FINDINGS: PANCREAS: No masses. Visualized pancreatic duct normal caliber. LIVER: No masses. Echotexture normal. LIVER VASCULATURE: Normal directional flow of the main portal vein and hepatic veins. GALLBLADDER: Punctate 4 mm echogenic area along the posterior wall without shadowing possibly sludge ball or polyp. No gallbladder wall thickening. No pericholecystic fluid. ULTRASOUND-DETECTED DOSS'S SIGN: Negative. INTRAHEPATIC DUCTS AND COMMON DUCT: CBD and intrahepatic ducts normal caliber. No filling defects. INFERIOR VENA CAVA: Normal flow. AORTA: No aneurysm. RIGHT KIDNEY: Normal size. Normal echogenicity. No solid or suspicious masses. No hydronephrosis. No calcifications. PERITONEAL AND RIGHT PLEURAL SPACE: No ascites or effusions. OTHER: No other significant findings. IMPRESSION: 4 mm echogenic focus along the posterior gallbladder wall without shadowing, possibly tu mefactive sludge or gallbladder polyp. Otherwise, unremarkable right upper quadrant ultrasound. TECHNICAL DOCUMENTATION: JOB ID: [id number] [employer]- All Rights Reserved Reading location - IP/workstation name: [email or web address]
[2019-03-05] MEDS ORDERED: NORMAL SALINE 1000 ML 1,000 ML IV ONE (15:39)
--- NOTE | 2019-03-05 16:06 | ER Document Report ---
ED GI/ - General Chief Complaint: Abdominal Pain Stated Complaint: SIDE PAIN Time Seen by Provider: 03/05/19 13:30 Primary Care Provider: LES PATEL II, PA-C [Primary Care Provider] - Follow up tomorrow Mode of Arrival: Ambulatory Information source: Patient Notes: Patient reports right lower pelvic pain for the past 3 weeks. Patient states that early this morning she had a fever of 101.3 at home. Patient denies any urinary symptoms, vomiting or diarrhea. Patient states that she does have pain after eating and states that she can only eat small amounts as it will increase her pain symptoms. Patient states that lifting or standing for long periods of time aggravates her pain as well. Patient reports nausea but denies any vomiting. Patient states she saw her primary doctor for this complaint and was referred to a director hydrogen storage engineering. Patient states the director hydrogen storage engineering had ordered an outpatient ultrasound but she does not have that scheduled until next week. TRAVEL OUTSIDE OF THE [place] IN LAST 30 DAYS: No - HPI Patient complains to provider of: Pelvic pain. No: Vaginal discharge, Vaginal p ain, Vomiting Onset: Other - 3 weeks Timing/Duration: Worse Quality of pain: Achy, Sharp Pain Level: 3 Location: RLQ. No: Right flank Vaginal bleeding (Compared to normal period): None Sexual history: Inactive Associated symptoms: denies: Blood in emesis, Blood in stool, Diarrhea, Dysuria, Fever, Nausea, Urinary hesitancy, Urinary frequency, Urinary retention, Urinary urgency, Vaginal discharge, Vomiting Exacerbated by: Standing, Movement, Food Relieved by: Denies Similar symptoms previously: No Recently seen / treated by doctor: Yes - Related Data Allergies/Adverse Reactions: amoxicillin [Amoxicillin] Allergy (Intermediate, Verified 03/05/19 12:40) RASH Sulfa (Sulfonamide Antibiotics) Allergy (Intermediate, Verified 03/05/19 12:40) UNKNOWN aspirin Allergy (Verified 03/05/19 12:40) gabapentin [From Neurontin] Allergy (Verified 03/05/19 12:40) EGGS Allergy (Uncoded 03/05/19 12:40) Past Medical History - General Information source: Patient - Social History Smoking Status: Never Smoker Frequency of alcohol use: None Drug Abuse: None Occupation: [employer] Family History: Reviewed & Not Pertinent Patient has suicidal ideation: No Patient has homicidal ideation: No Pulmonary Medical History: Reports: Hx Asthma, Hx Pneumonia Denies: Hx Bronchitis, Hx COPD Neurological Medical History: Denies: Hx Cerebrovascular Accident, Hx Seizures Renal/ Medical History: Reports: Hx Kidney Stones. Denies: Hx Peritoneal Dialysis GI Medical History: Reports: Hx Diverticulitis, Hx Gastroesophageal Reflux Disease Musculoskeletal Medical History: Denies Hx Arthritis Past Surgical History: Reports: Hx Section, Hx Tubal Ligation - Immunizations Hx Diphtheria, Pertussis, Tetanus Vaccination: Yes Review of Systems - Review of Systems Constitutional: Fever. denies: Recent illness EENT: No symptoms reported Cardiovascular: No symptoms reported. denies: Chest pain Respiratory: No symptoms reported. denies: Cough, Short of breath Gastrointestinal: Abdominal pain, Nausea. denies: Diarrhea, Vomiting, Constipation, Poor fluid intake Genitourinary: No symptoms reported. denies: Dysuria, Flank pain Female Genitourinary: No symptoms reported. denies: Vaginal discharge, Vaginal bleeding Musculoskeletal: No symptoms reported. denies: Back pain Skin: No symptoms reported Hematologic/Lymphatic: No symptoms reported Neurological/Psychological: No symptoms reported Physical Exam - Vital signs Vitals: Temp Pulse Resp BP Pulse Ox 98.0 F 92 20 136/68 H 98 03/05/19 13:05 03/05/19 13:05 03/05/19 13:05 03/05/19 13:05 03/05/19 13:05 - General General appearance: Appears well, Alert In distress: None - HEENT Head: Normocephalic, Atraumatic Eyes: Normal Conjunctiva: Normal Nasal: Normal Mouth/Lips: Normal Mucous membranes: Normal Neck: Normal, Supple. No: Lymphadenopathy - Respiratory Respiratory status: No respiratory distress Chest status: Nontender Breath sounds: Normal. No: Rales, Rhonchi, Stridor, Wheezing Chest palpation: Normal - Cardiovascular Rhythm: Regular Heart sounds: S1 appreciated, S2 appreciated Murmur: No - Abdominal Inspection: Morbidly Obese Distension: No distension Bowel sounds: Normal Tenderness: Tender - Right lower pelvic tenderness. No: Pemberton's sign, Guarding Organomegaly: No organomegaly - Back Back: Normal, Nontender. No: CVA tenderness - Extremities General upper extremity: Normal inspection, Nontender, Normal ROM General lower extremity: Normal inspection, Nontender, Normal ROM - Neurological Neuro grossly intact: Yes Cognition: Normal [place] Coma Scale Eye Opening: Spontaneous Nita Coma Scale Verbal: Oriented Nita Coma Scale Motor: Obeys Commands [place] Coma Scale Total: 15 - Psychological Associated symptoms: Normal affect, Normal mood - Skin Skin Temperature: Warm Skin Moisture: Dry Skin Color: Normal Course - Re-evaluation Re-evalutation: 03/05/19 18:13 Patient without any acute findings on CT scan. Patient does have a 4 mm echogenic focus noted on her right upper quadrant ultrasound that could be sludge or a gallbladder polyp. Patient does not have any right upper quadrant abdominal tenderness though. Patient does have right lower quadrant abdominal tenderness. Both CT scan and ultrasound were performed. Patient without any findings worrisome for appendicitis, TOA, or torsion at this time. Patient without any leukocytosis or objective fever here today. Consulted with Dr. De Jesus regarding patient presentation and diagnostic evaluation. Agrees with plan to treat UTI at this time and advises a follow-up in 12 hours for repeat examination. - Vital Signs Vital signs: Temp Pulse Resp BP Pulse Ox 98.0 F 75 16 130/81 H 100 03/05/19 19:22 03/05/19 19:22 03/05/19 19:22 03/05/19 19:22 03/05/19 19:22 - Laboratory Result Diagrams: 03/05/19 13:40 03/05/19 13:40 Laboratory results interpreted by me: 03/05/19 03/05/19 13:40 13:40 Hgb 11.9 L MCV 78 L MCH 24.4 L MCHC 31.2 L RDW 19.0 H Urine Blood SMALL H Ur Leukocyte Esterase SMALL H 03/05/19 18:13 Labs- Entire Visit 03/05/19 03/05/19 03/05/19 13:40 13:40 13:40 WBC 6.7 RBC 4.86 Hgb 11.9 L Hct 38.0 MCV 78 L MCH 24.4 L MCHC 31.2 L RDW 19.0 H Plt Count 392 Seg Neutrophils % 73.7 Lymphocytes % 16.7 Monocytes % 7.4 Eosinophils % 1.3 Basophils % 0.9 Absolute Neutrophils 4.9 Absolute Lymphocytes 1.1 Absolute Monocytes 0.5 Absolute Eosinophils 0.1 Absolute Basophils 0.1 Sodium 142.5 Potassium 4.2 Chloride 103 Carbon Dioxide 30 Anion Gap 10 BUN 9 Creatinine 0.79 Est GFR ( Amer) > 60 Est GFR (Non-Af Amer) > 60 Glucose 84 Calcium 9.5 Total Bilirubin 0.4 Direct Bilirubin 0.2 Neonat Total Bilirubin Not Reportable Neonat Direct Bilirubin Not Reportable Neonat Indirect Bili Not Reportable AST 14 ALT 26 Alkaline Phosphatase 64 Total Protein 7.0 Albumin 4.0 Lipase 115.9 Urine Color STRAW Urine Appearance CLEAR Urine pH 5.0 Ur Specific Holcomb 1.005 Urine Protein NEGATIVE Urine Glucose (UA) NEGATIVE Urine Ketones NEGATIVE Urine Blood SMALL H Urine Nitrite NEGATIVE Urine Bilirubin NEGATIVE Urine Urobilinogen NEGATIVE Ur Leukocyte Esterase SMALL H Urine WBC (Auto) 0 Urine RBC (Auto) 0 U Hyaline Cast (Auto) 1 Urine Bacteria (Auto) TRACE Squamous Epi Cells Auto 1 Urine Mucus (Auto) RARE Urine Ascorbic Acid NEGATIVE Urine HCG, Qual NEGATIVE - Diagnostic Test Radiology reviewed: Reports reviewed Discharge - Discharge Clinical Impression: Gall bladder polyp, Renal cyst Abdominal pain Qualifiers: Abdominal location: right lower quadrant Qualified Code(s): R10.31 - Right lower quadrant pain UTI (urinary tract infection) Qualifiers: Urinary tract infection type: site unspecified Hematuria presence: with hematuria Qualified Code(s): N39.0 - Urinary tract infection, site not specified Condition: Stable Disposition: HOME, SELF-CARE Instructions: Abdominal Pain ([facility]), Antispasmodics ([facility]), Gallbladder Disease ([facility]), Nitrofurantoin ([facility]), Observation for Appendicitis ([facility]), Urinary Tract Infection ([facility]) Additional Instructions: Return immediately for any new or worsening symptoms Followup with your primary care provider, call tomorrow to make a followup appointment Urine culture is pending, we will call if you need any different treatment Follow-up with your primary doctor for recheck. They may need to make referrals for you for additional testing to further evaluate the sludge versus polyp in the gallbladder. You may need a HIDA scan to further evaluate your gallbladder. Your CT scan also showed incidental renal cysts that your primary doctor can further evaluate for you. Prescriptions: Dicyclomine HCl [Bentyl 20 mg Tablet] 20 mg PO QID PRN #12 tablet PRN Reason: Nitrofurantoin/Nitrofuran Mac [Macrobid 100 mg Capsule] 100 mg PO BID #10 ca psule Ondansetron HCl [Zofran 4 mg Tablet] 1 - 2 tab PO Q6 PRN #8 tablet PRN Reason: Forms: Return to Work Referrals: LES PATEL II, PA-C [Primary Care Provider] - Follow up tomorrow
--- NOTE | 2019-03-05 17:33 | RADIOLOGY REPORT (SQ) ---
EXAM DESCRIPTION: CT ABD/PELVIS WITH IV ONLY COMPLETED DATE/TIME: 03/05/2019 5:09 pm REASON FOR STUDY: RLQ pain COMPARISON: 10/28/2018 TECHNIQUE: CT scan of the abdomen and pelvis performed using helical scanning technique with dynamic intravenous contrast injection. No oral contrast. Images reviewed with lung, soft tissue, and bone w indows. Reconstructed coronal and sagittal MPR images reviewed. Delayed images for evaluation of the urinary system also acquired. All images stored on PACS. All CT scanners at this facility use dose modulation, iterative reconstruction, and/or weight based d osing when appropriate to reduce radiation dose to as low as reasonably achievable (ALARA). [facility]: Dose Right [facility]: CareDose [facility]: Dose Right [facility]: Teradose 4D [facility]: [employer] CONTRAST TYPE AND DOSE: contrast/concentration: Isovue 350.00 mg/ml; Total Contrast Delivered: 100.0 ml; Total Saline Delivered: 72.0 ml RENAL FUNCTION: GFR > 60. RADIATION DOSE: CT Rad equipment meets quality standard of care and radiation dose reduction techniq ues were employed. CTDIvol: 20.3 - 20.8 mGy. DLP: 2361 mGy-cm.. LIMITATIONS: None. FINDINGS: LOWER CHEST: Similar hiatus hernia. LIVER: Normal size. Similar hemangioma in the left lobe of the liver. No dilated ducts. SPLEEN: Normal size. No focal lesions. PANCREAS: No masses identified. No significant calcifications. No adjacent inflammation or peripancre atic fluid collections. Pancreatic duct not dilated. GALLBLADDER: No calcified stones. No inflammatory changes to suggest cholecystitis. ADRENAL GLANDS: No significant masses. RIGHT KIDNEY AND URETER: Similar small cysts identified. No solid masses identified. No calcified sto shira. No hydronephrosis or hydroureter. LEFT KIDNEY AND URETER: Similar small cysts identified. No solid masses identified. No calcified ston es. No hydronephrosis or hydroureter. AORTA AND VESSELS: No aneurysm. No dissection. Renal arteries, SMA, celiac without significant stenos is. RETROPERITONEUM: No bulky retroperitoneal adenopathy. BOWEL AND PERITONEAL CAVITY: No obstruction or inflammatory changes. No free fluid. APPENDIX: Normal. PELVIS: Trace free fluid. Unremarkable bladder. ABDOMINAL WALL: No masses. No hernias. BONES: No acute findings. OTHER: No other significant finding. IMPRESSION: No acute or significant findings. TECHNICAL DOCUMENTATION: JOB ID: [id number] [place]-72 Quality ID # [id number]: Final reports with documentation of one or more dose reduction techniques (e.g., Au tomated exposure control, adjustment of the mA and/or kV according to patient size, use of iterative reconstruction technique) 2010 [employer]- All Rights Reserved Reading location - IP/workstation name: [email or web address]
--- NOTE | 2019-03-05 17:36 | RADIOLOGY REPORT (SQ) ---
EXAM DESCRIPTION: U/S NON OB PEL TV W/DOPPLER COMPLETED DATE/TIME: 03/05/2019 5:05 pm REASON FOR STUDY: RLQ pain COMPARISON: None. TECHNIQUE: Dynamic and static grayscale images acquired of the pelvis via transvaginal approach and recorded on PACS. Additional selected color Doppler and spectral images recorded. LIMITATIONS: None. FINDINGS: UTERUS: Contour normal. No mass. ENDOMETRIAL STRIPE: No focal or generalized thickening. No masses. CERVIX: 1.5 cm nabothian cysts. RIGHT OVARY AND DOPPLER: Normal size. No worrisome masses. Normal arterial vascular flow without evid ence for torsion. LEFT OVARY AND DOPPLER: Normal size. No worrisome masses. Normal arterial vascular flow without evide nce for torsion. FREE FLUID: Trace cul-de-sac free fluid. OTHER: No other significant finding. MEASUREMENTS: UTERUS: 7.3 x 4.7 x 4.5 cm ENDOMETRIAL STRIPE: 4 mm RIGHT OVARY: 2.3 x 1.7 x 1.2 cm LEFT OVARY: 2.5 x 2.6 x 2.1 cm IMPRESSION: Trace cul-de-sac free fluid. 1.5 cm nabothian cysts. TECHNICAL DOCUMENTATION: JOB ID: [id number] [place]-72 2010 [employer]- All Rights Reserved Rev Reading location - IP/workstation name: [email or web address]
[2019-03-05] MEDS ORDERED: NITROFURANTOIN MONOHYD/M-CRYST 100 MG CAPSULE PO ONE (18:24)
[2019-03-05 19:23] VITALS: BP 130/81
== END 2019-03-05 19:23 | disposition home or self-care (01) ==
LOC: ER 12:30
DX: K82.4 Cholesterolosis of gallbladder (principal); N28.1 Cyst of kidney, acquired; N39.0 Urinary tract infection, site not specified; R10.31 Right lower quadrant pain; R10.9 Unspecified abdominal pain; R10.2 Pelvic and perineal pain; R50.9 Fever, unspecified; R11.0 Nausea; R10.11 Right upper quadrant pain; X50.9XXA Other and unspecified overexertion or strenuous movements or postures, initial encounter; J45.909 Unspecified asthma, uncomplicated
CPT/HCPCS: 99284; 96360; 96361; 36415; 87086; 83690; 85025; 81025; 80053; 81001; 76705; 76830; 93976; 74177; J7030; J8499

== ENCOUNTER 2019-03-21 14:06 | Emergency (ER) | payer BC ==
[2019-03-21] MEDS ORDERED: ONDANSETRON 4 MG TAB.RAPDIS PO ONE (16:04)
--- NOTE | 2019-03-21 16:05 | ER Document Report ---
ED Medical Screen (RME) - General Chief Complaint: Nausea/Vomiting Stated Complaint: VOMITING, FEVER Time Seen by Provider: 03/21/19 15:59 Primary Care Provider: LES PATEL II, PA-C [Primary Care Provider] - Follow up as needed TRAVEL OUTSIDE OF THE [place] IN LAST 30 DAYS: No - HPI Notes: 03/21/19 16:05 Patient is a 43-year-old female with a history of asthma and GERD who presents complaining of chest tightness that began today. She is also been having nausea, vomiting, decreased p.o. intake over the past month. She was here 2 weeks ago and had an ultrasound CT performed which were unremarkable aside from possible sludge in the gallbladder. No cardiopulmonary medical history otherwise. Denies NIEVES, fever, neck pain, URI, SOB, Abd pain, dysuria, back pain, or rash. I have treated and performed a rapid initial assessment of this patient. A comprehensive ED assessment and evaluation of the patient, analysis of test results and completion of medical decision making process will be conducted by additional ED providers. PHYSICAL EXAMINATION: GENERAL: Well-appearing, well-nourished and in no acute distress. A&Ox4. Answers questions appropriately. LUNGS: Breath sounds clear to auscultation bilaterally and equal. No wheezes rales or rhonchi. HEART: Regular rate and rhythm without murmurs, rubs, gallops. ABDOMEN: Soft, nondistended abdomen. No guarding, no rebound. Normal bowel sounds present. No CVA tenderness bilaterally. Grossly nontender (cannot elicit thorough abd exam w/o bed, however). Extremities: No cyanosis, clubbing, or edema b/l. NEUROLOGICAL: Normal speech, normal gait. PSYCH: Normal mood, normal affect. - Related Data Allergies/Adverse Reactions: amoxicillin [Amoxicillin] Allergy (Intermediate, Verified 03/21/19 14:09) RASH Sulfa (Sulfonamide Antibiotics) Allergy (Intermediate, Verified 03/21/19 14:09) UNKNOWN aspirin Allergy (Verified 03/21/19 14:09) gabapentin [From Neurontin] Allergy (Verified 03/21/19 14:09) EGGS Allergy (Uncoded 03/21/19 14:09) Past Medical History - Past Medical History Cardiac Medical History: Denies: Hx Coronary Artery Disease, Hx Heart Attack, Hx Hypertension Pulmonary Medical History: Reports: Hx Asthma, Hx Pneumonia Denies: Hx Bronchitis, Hx COPD Neurological Medical History: Denies: Hx Cerebrovascular Accident, Hx Seizures Renal/ Medical History: Reports: Hx Kidney Stones. Denies: Hx Peritoneal Dialysis GI Medical History: Reports: Hx Diverticulitis, Hx Gastroesophageal Reflux Disease Musculoskeltal Medical History: Denies Hx Arthritis Past Surgical History: Reports: Hx Section, Hx Tubal Ligation. Denies: Hx Hysterectomy, Hx Pacemaker - Immunizations Hx Diphtheria, Pertussis, Tetanus Vaccination: Yes Physical Exam - Vital signs Vitals: Temp Pulse Resp BP Pulse Ox 98.1 F 96 14 122/78 98 03/21/19 14:27 03/21/19 14:27 03/21/19 14:27 03/21/19 14:27 03/21/19 14:27 Course - Vital Signs Vital signs: Temp Pulse Resp BP Pulse Ox 98.1 F 96 14 122/78 98 03/21/19 14:27 03/21/19 14:27 03/21/19 14:27 03/21/19 14:27 03/21/19 14:27 Doctor's Discharge - Discharge Referrals: LES PATEL II, PA-C [Primary Care Provider] - Follow up as needed
--- NOTE | 2019-03-21 16:42 | RADIOLOGY REPORT (SQ) ---
EXAM DESCRIPTION: CHEST SINGLE VIEW COMPLETED DATE/TIME: 03/21/2019 4:31 pm REASON FOR STUDY: chest tightness COMPARISON: 06/27/2018 EXAM PARAMETERS: NUMBER OF VIEWS: One view. TECHNIQUE: Single frontal radiographic view of the chest acquired. RADIATION DOSE: NA LIMITATIONS: None. FINDINGS: LUNGS AND PLEURA: No opacities, masses or pneumothorax. No pleural effusion. MEDIASTINUM AND HILAR STRUCTURES: No masses. Contour normal. HEART AND VASCULAR STRUCTURES: Heart normal in size. Normal vasculature. BONES: No acute findings. HARDWARE: None in the chest. OTHER: No other significant finding. IMPRESSION: NO ACUTE RADIOGRAPHIC FINDING IN THE CHEST. TECHNICAL DOCUMENTATION: JOB ID: [id number] [employer]- All Rights Reserved Reading location - IP/workstation name: [email or web address]
[2019-03-21 16:44] LABS: ABSOLUTE EOSINOPHILS # (AUTO) 0.1 10^3/uL (0.0-0.6); ABSOLUTE LYMPHOCYTES (AUTO) 1.2 10^3/uL (0.5-4.7); ABSOLUTE MONOCYTES (AUTO) 0.5 10^3/uL (0.1-1.4); ABSOLUTE NEUT (AUTO) 4.6 10^3/uL (1.7-8.2); BASOPHILS % (AUTO) 0.7 % (0-2); EOSINOPHILS % (AUTO) 1.4 % (0-6); HEMATOCRIT 35.6 % (36.0-47.0); HEMOGLOBIN 11.1 g/dL (12.0-15.5); MEAN CORPUSCULAR HGB CONC 31.1 g/dL (32.0-36.0); MEAN CORPUSCULAR VOLUME 77 fl (80-97); MONOCYTES % (AUTO) 8.4 % (3-13); PLATELET COUNT 327 10^3/uL (150-450); RED BLOOD COUNT 4.62 10^6/uL (3.72-5.28); RED CELL DISTRIBUTION WIDTH 18.2 % (11.5-14.0); SEGMENTED NEUTROPHILS % (AUTO) 71.5 % (42-78); TOTAL CELLS COUNTED % (AUTO) 100 %; WHITE BLOOD COUNT 6.5 10^3/uL (4.0-10.5)
[2019-03-21 17:03] LABS: ALANINE AMINOTRANSFERASE 14 U/L (9-52); ALBUMIN 3.9 g/dL (3.5-5.0); ALKALINE PHOSPHATASE 63 U/L (38-126); ANION GAP 10 (5-19); ASPARTATE AMINO TRANSFERASE 12 U/L (14-36); BILIRUBIN,DIRECT 0.1 mg/dL (0.0-0.4); BILIRUBIN,TOTAL 0.1 mg/dL (0.2-1.3); BLOOD UREA NITROGEN 8 mg/dL (7-20); CALCIUM 9.2 mg/dL (8.4-10.2); CARBON DIOXIDE 25 mmol/L (22-30); CHLORIDE 106 mmol/L (98-107); GLUCOSE 99 mg/dL (75-110); SODIUM 140.7 mmol/L (137-145); TOTAL PROTEIN 6.6 g/dL (6.3-8.2)
--- NOTE | 2019-03-21 17:13 | RADIOLOGY REPORT (SQ) ---
EXAM DESCRIPTION: U/S ABDOMEN LIMITED W/O DOP COMPLETED DATE/TIME: 03/21/2019 4:55 pm REASON FOR STUDY: n/v with food intake COMPARISON: 03/05/2019 TECHNIQUE: Dynamic and static grayscale images acquired of the abdomen and recorded on PACS. Additio ismael selected color Doppler and spectral images recorded. LIMITATIONS: None. FINDINGS: PANCREAS: The head and body of the pancreas are of normal echogenicity. The pancreatic t ail is obscured by overlying bowel gas. LIVER: The liver measures 18.6 cm in length, hepatomegaly. Echotexture normal. LIVER VASCULATURE: Normal directional flow of the main portal vein and hepatic veins. GALLBLADDER: The previously demonstrated small 4 mm echogenic focus along the posterior wall of the gallbladder is not visualized on the current study. The gallbladder wall measures 1.5 mm, normal wal l thickness. No pericholecystic fluid. ULTRASOUND-DETECTED DOSS'S SIGN: Negative. INTRAHEPATIC DUCTS AND COMMON DUCT: CBD measures 2.7 mm in diameter, normal. The intrahepatic ducts normal caliber. No filling defects. INFERIOR VENA CAVA: Normal flow. AORTA: No aneurysm. RIGHT KIDNEY: The right kidney measures 13.2 cm in length, normal size. Normal echogenicity. A sma ll 1.2 x 1.1 x 1.1 cm cyst in the lower pole, correlates to the CT abdomen examination dated 9. PERITONEAL AND RIGHT PLEURAL SPACE: No ascites or effusions. OTHER: No other significant findings. IMPRESSION: 1. The very small 4 mm echogenic focus demonstrated along the posterior gallbladder wal l on the examination dated 03/05/2019 is not visualized on the current study. 2. No evidence of gallstones. In view of the given history, further evaluation with Nuclear medicine HIDA scan may be helpful if clinically indicated. 3. Small right renal cyst. 4. The tail of the pancreas is obscured by overlying bowel gas. TECHNICAL DOCUMENTATION: JOB ID: [id number] [employer]- All Rights Reserved Reading location - IP/workstation name: [email or web address]
[2019-03-21] MEDS ORDERED: METOCLOPRAMIDE HCL 10 MG TABLET PO ONE (17:59)
--- NOTE | 2019-03-21 18:07 | ER Document Report ---
ED General - General Chief Complaint: Nausea/Vomiting Stated Complaint: VOMITING, FEVER Time Seen by Provider: 03/21/19 15:59 Primary Care Provider: LES PATEL II, PA-C [NO LOCAL MD] - Follow up as needed Mode of Arrival: Ambulatory Information source: Patient TRAVEL OUTSIDE OF THE [place] IN LAST 30 DAYS: No - HPI Patient complains to provider of: Abdominal fullness, chest tightness, nausea with eating Onset: Other - Ongoing problem Onset/Duration: Constant Quality of pain: No pain Associated symptoms: Nausea, Vomiting. denies: Chills, Diarrhea, Fever Exacerbated by: Denies Relieved by: Denies Similar symptoms previously: No Recently seen / treated by doctor: No Notes: 43-year-old female coming in today with upper abdominal discomfort, fullness, difficulty eating normal portions. Now having some pain with nausea and vomiting with eating. No fevers or chills. Has not seen a GI doctor. - Related Data Allergies/Adverse Reactions: amoxicillin [Amoxicillin] Allergy (Intermediate, Verified 03/21/19 14:09) RASH Sulfa (Sulfonamide Antibiotics) Allergy (Intermediate, Verified 03/21/19 14:09) UNKNOWN aspirin Allergy (Verified 03/21/19 14:09) gabapentin [From Neurontin] Allergy (Verified 03/21/19 14:09) EGGS Allergy (Uncoded 03/21/19 14:09) Past Medical History - General Information source: Patient - Social History Smoking Status: Unknown if Ever Smoked Chew tobacco use (# tins/day): No Frequency of alcohol use: None Drug Abuse: None Family History: Reviewed & Not Pertinent Patient has suicidal ideation: No Patient has homicidal ideation: No - Past Medical History Cardiac Medical History: Denies: Hx Coronary Artery Disease, Hx Heart Attack, Hx Hypertension Pulmonary Medical History: Reports: Hx Asthma, Hx Pneumonia Denies: Hx Bronchitis, Hx COPD Neurological Medical History: Denies: Hx Cerebrovascular Accident, Hx Seizures Renal/ Medical History: Reports: Hx Kidney Stones. Denies: Hx Peritoneal Dialysis GI Medical History: Reports: Hx Diverticulitis, Hx Gastroesophageal Reflux Disease Musculoskeletal Medical History: Denies Hx Arthritis Past Surgical History: Reports: Hx Section, Hx Tubal Ligation. Denies: Hx Hysterectomy, Hx Pacemaker - Immunizations Hx Diphtheria, Pertussis, Tetanus Vaccination: Yes Review of Systems - Review of Systems Notes: Constitutional: No fevers. No chills. EENT: No eye redness. No eye pain. No ear pain. No sore throat. Cardiovascular: No chest pain. No palpitations. Respiratory: No cough. No shortness of breath. No respiratory distress. Gastrointestinal: Positive for abdominal fullness, bloating, nausea, vomiting. No diarrhea. Genitourinary: Atraumatic. No lesions. No pain. No discharge. Musculoskeletal: Atraumatic. No swelling. No deformities. Skin: No rash or lesions. Lymphatic: No swollen lymph nodes. Neurologic: No headache. No syncope. Psychiatric: No suicidal or homicidal ideation. Physical Exam - Vital signs Vitals: Temp Pulse Resp BP Pulse Ox 98.1 F 96 14 122/78 98 03/21/19 14:27 03/21/19 14:27 03/21/19 14:27 03/21/19 14:27 03/21/19 14:27 - Notes Notes: General: Well-developed, well-nourished. In no acute distress. Non-toxic appearing. Cardiac: Well-perfused. Regular rate and rhythm. No murmurs, rubs, or gallops. Pulmonary: No respiratory distress. No cyanosis. Bilateral lung fiels are clear to auscultation. Abdominal: Non-distended. Non-rigid. Bowels sounds are present in all four quadrants. No guarding or rebound. HEENT: Head is atraumatic. Conjunctivae not reddened. No tearing. PERRL. EOMI. Orbits atraumatic. No periorbital swelling or erythema. Oropharynx is without erythema, swelling, or exudates. Neck: Supple. No adenopathy. No meningismus. Dermatologic: Warm with good turgor. No rash. Atraumatic. Chest: Atraumatic. No chest wall tenderness to palpation. Musculoskeletal: Moves all extremities well. No range of motion deficits. no muscular or joint tenderness. No paraspinal muscle tenderness. no midline spinal tenderness or step-off. Genitourinary: Examination deferred Neurologic: No gross neurologic deficits. Psychiatric: Normal mood. Course - Re-evaluation Re-evalutation: 03/21/19 18:07 Suspect the patient has a dysfunctional gallbladder. Will wait to see what the labs and ultrasound look like 03/21/19 19:48 Work-up is negative. I think the patient might benefit from a HIDA scan. I will have her follow-up with your doctor in here she can determine if they want to order that. I will also give the patient the name of Dr. Douglas for GI in case they want to go down that avenue. We will write for some Reglan and some Bentyl in the meantime to help with her symptoms. - Vital Signs Vital signs: Temp Pulse Resp BP Pulse Ox 98.1 F 96 14 122/78 98 03/21/19 14:27 03/21/19 14:27 03/21/19 14:27 03/21/19 14:27 03/21/19 14:27 - Laboratory Result Diagrams: 03/21/19 16:15 03/21/19 16:15 Laboratory results interpreted by me: 03/21/19 03/21/19 03/21/19 16:15 16:15 18:53 Hgb 11.1 L Hct 35.6 L MCV 77 L MCH 24.0 L MCHC 31.1 L RDW 18.2 H Total Bilirubin 0.1 L AST 12 L Ur Leukocyte Esterase SMALL H Discharge - Discharge Clinical Impression: Early satiety Abdominal pain Qualifiers: Abdominal location: upper abdomen, unspecified Qualified Code(s): R10.10 - Upper abdominal pain, unspecified Condition: Good Disposition: HOME, SELF-CARE Instructions: Abdominal Pain ([facility]), Antispasmodics ([facility]) Prescriptions: Metoclopramide HCl [Reglan 10 mg Tablet] 1 tab PO Q6HP PRN #20 tablet PRN Reason: Dicyclomine HCl [Bentyl 20 mg Tablet] 20 mg PO QID #40 tablet Referrals: AMANDA PIEDRA,LES Franco PA-C [NO LOCAL MD] - Follow up as needed
[2019-03-21 19:26] LABS: APPEARANCE,URINE CLEAR; BILIRUBIN,URINE NEGATIVE (NEGATIVE); COLOR,URINE YELLOW; GLUCOSE, URINE NEGATIVE (NEGATIVE); KETONES,URINE NEGATIVE (NEGATIVE); LEUKOCYTE ESTERASE,URINE SMALL (NEGATIVE); NITRITE,URINE NEGATIVE (NEGATIVE); PROTEIN,URINE NEGATIVE (NEGATIVE); URINE SPECIFIC GRAVITY 1.018; UROBILINOGEN,URINE NEGATIVE mg/dL (<2.0)
--- NOTE | 2019-03-21 19:30 | EKG REPORT ---
SEVERITY:- NORMAL ECG - SINUS RHYTHM : Confirmed by: Therese Muhammad MD 21-Mar-2019 19:28:59
[2019-03-21 20:12] VITALS: BP 129/81
== END 2019-03-21 20:12 | disposition home or self-care (01) ==
LOC: ER 14:06
DX: R68.81 Early satiety (principal); R14.0 Abdominal distension (gaseous); R10.10 Upper abdominal pain, unspecified; R11.2 Nausea with vomiting, unspecified; J45.909 Unspecified asthma, uncomplicated; R07.89 Other chest pain; Z87.442 Personal history of urinary calculi; Z98.51 Tubal ligation status; Z88.0 Allergy status to penicillin; Z88.2 Allergy status to sulfonamides; Z88.6 Allergy status to analgesic agent; Z91.012 Allergy to eggs
CPT/HCPCS: 93005; 99284; 36415; 85025; 81025; 80053; 81001; 84484; 71045; 76705; 93010; S0119

== ENCOUNTER 2019-04-20 18:44 | Emergency (ER) | payer BC ==
--- NOTE | 2019-04-20 18:53 | ER Document Report ---
ED Medical Screen (RME) - General Stated Complaint: POST OP PROBLEMS Time Seen by Provider: 04/20/19 18:46 Mode of Arrival: Ambulatory Information source: Patient Notes: Patient presents emergency department with complaints of right lower quad pain and chest pain. Reports symptoms started yesterday. Reports she is in extreme pain. Reports she just had emergency surgery done at [facility] March 24 on her appendix. Patient has 3 small incisions around her umbilicus area. She reports she is confused as to whether she had surgery on her gallbladder or her appendix. Patient reports she felt a little bit better after the surgery on March 24 was starting to eat and then yesterday her symptoms became worse. Denies pain with void. Denies nausea vomiting diarrhea. Reports side pain. I have greeted and performed a rapid initial assessment of this patient. A comprehensive ED assessment and evaluation of the patient, analysis of test results and completion of the medical decision making process will be conducted by additional ED providers. Dictation of this chart was performed using voice recognition software; therefore, there may be some unintended grammatical errors. TRAVEL OUTSIDE OF THE [place] IN LAST 30 DAYS: No - Related Data Allergies/Adverse Reactions: amoxicillin [Amoxicillin] Allergy (Intermediate, Verified 04/20/19 18:53) RASH Sulfa (Sulfonamide Antibiotics) Allergy (Intermediate, Verified 04/20/19 18:53) UNKNOWN aspirin Allergy (Verified 04/20/19 18:53) gabapentin [From Neurontin] Allergy (Verified 04/20/19 18:53) EGGS Allergy (Uncoded 04/20/19 18:53) Past Medical History - Past Medical History Cardiac Medical History: Denies: Hx Coronary Artery Disease, Hx Heart Attack, Hx Hypertension Pulmonary Medical History: Reports: Hx Asthma, Hx Pneumonia Denies: Hx Bronchitis, Hx COPD Neurological Medical History: Denies: Hx Cerebrovascular Accident, Hx Seizures Renal/ Medical History: Reports: Hx Kidney Stones. Denies: Hx Peritoneal Dialysis GI Medical History: Reports: Hx Diverticulitis, Hx Gastroesophageal Reflux Disease Musculoskeltal Medical History: Denies Hx Arthritis Past Surgical History: Reports: Hx Section, Hx Tubal Ligation. Denies: Hx Hysterectomy, Hx Pacemaker - Immunizations Hx Diphtheria, Pertussis, Tetanus Vaccination: Yes Physical Exam - Vital signs Vitals: Temp Pulse Resp BP Pulse Ox 98.2 F 92 18 136/67 H 98 04/20/19 18:58 04/20/19 18:58 04/20/19 18:58 04/20/19 18:58 04/20/19 18:58 Course - Vital Signs Vital signs: Temp Pulse Resp BP Pulse Ox 98.2 F 92 18 136/67 H 98 04/20/19 18:58 04/20/19 18:58 04/20/19 18:58 04/20/19 18:58 04/20/19 18:58
--- NOTE | 2019-04-20 19:43 | RADIOLOGY REPORT (SQ) ---
EXAM DESCRIPTION: CHEST 2 VIEWS COMPLETED DATE/TIME: 04/20/2019 7:32 pm REASON FOR STUDY: cp COMPARISON: 03/21/2019 TECHNIQUE: Frontal and lateral radiographic views of the chest acquired. NUMBER OF VIEWS: Two view. LIMITATIONS: None. FINDINGS: LUNGS AND PLEURA: No pneumothorax. No consolidation or pleural effusion. MEDIASTINUM AND HILAR STRUCTURES: Stable. HEART AND VASCULAR STRUCTURES: Stable. BONES: No acute findings. HARDWARE: None in the chest. OTHER: No other significant finding. IMPRESSION: NO ACUTE FINDINGS. TECHNICAL DOCUMENTATION: JOB ID: [id number] [place]-[id number] 2010 [employer]- All Rights Reserved Reading location - IP/workstation name: [email or web address]
[2019-04-20 20:12] LABS: ABSOLUTE EOSINOPHILS # (AUTO) 0.1 10^3/uL (0.0-0.6); ABSOLUTE LYMPHOCYTES (AUTO) 1.8 10^3/uL (0.5-4.7); ABSOLUTE MONOCYTES (AUTO) 0.6 10^3/uL (0.1-1.4); ABSOLUTE NEUT (AUTO) 5.9 10^3/uL (1.7-8.2); BASOPHILS % (AUTO) 0.5 % (0-2); EOSINOPHILS % (AUTO) 1.5 % (0-6); HEMATOCRIT 34.7 % (36.0-47.0); LYMPHOCYTES % (AUTO) 21.4 % (13-45); MEAN CORPUSCULAR HEMOGLOBIN 23.7 pg (27.0-33.4); MEAN CORPUSCULAR HGB CONC 31.6 g/dL (32.0-36.0); MEAN CORPUSCULAR VOLUME 75 fl (80-97); MONOCYTES % (AUTO) 7.3 % (3-13); PLATELET COUNT 337 10^3/uL (150-450); RED BLOOD COUNT 4.62 10^6/uL (3.72-5.28); RED CELL DISTRIBUTION WIDTH 17.3 % (11.5-14.0); SEGMENTED NEUTROPHILS % (AUTO) 69.3 % (42-78); TOTAL CELLS COUNTED % (AUTO) 100 %; WHITE BLOOD COUNT 8.5 10^3/uL (4.0-10.5)
[2019-04-20 20:30] LABS: ALANINE AMINOTRANSFERASE 12 U/L (9-52); ALKALINE PHOSPHATASE 65 U/L (38-126); ANION GAP 6 (5-19); ASPARTATE AMINO TRANSFERASE 12 U/L (14-36); BILIRUBIN,DIRECT 0.2 mg/dL (0.0-0.4); BILIRUBIN,TOTAL 0.2 mg/dL (0.2-1.3); BLOOD UREA NITROGEN 10 mg/dL (7-20); CALCIUM 9.1 mg/dL (8.4-10.2); CARBON DIOXIDE 28 mmol/L (22-30); CHLORIDE 105 mmol/L (98-107); CREATINE KINASE 35 U/L (30-135); GLUCOSE 93 mg/dL (75-110); LIPASE 111.4 U/L (23-300); POTASSIUM 4.3 mmol/L (3.6-5.0); SODIUM 139.2 mmol/L (137-145); TOTAL PROTEIN 7.1 g/dL (6.3-8.2)
--- NOTE | 2019-04-20 20:31 | ER Document Report ---
ED GI/ - General Chief Complaint: Chest Pain Stated Complaint: POST OP PROBLEMS Time Seen by Provider: 04/20/19 18:46 Mode of Arrival: Ambulatory Notes: Patient is a 44-year-old female that comes to the emergency department for chief complaint of right lower quadrant pain. She also reports pain in her chest towards the center. Both areas have had intermittent pain that have been noticeable since yesterday. She denies nausea or vomiting, difficulty breathing. She reports she had an appendectomy on 03/24/2019 at [facility]. She denies fever, injury, abnormal appearance of the wounds, she reports she is having normal bowel movements, denies dysuria or hematuria, denies vaginal bleeding or discharge. Remaining medical history includes kidney stones, tubal ligation, , anemia, obesity, hiatal hernia, and she takes Lasix for lower extremity swelling with a potassium supplement. TRAVEL OUTSIDE OF THE [place] IN LAST 30 DAYS: No - Related Data Allergies/Adverse Reactions: amoxicillin [Amoxicillin] Allergy (Intermediate, Verified 04/20/19 18:53) RASH Sulfa (Sulfonamide Antibiotics) Allergy (Intermediate, Verified 04/20/19 18:53) UNKNOWN aspirin Allergy (Verified 04/20/19 18:53) gabapentin [From Neurontin] Allergy (Verified 04/20/19 18:53) EGGS Allergy (Uncoded 04/20/19 18:53) Past Medical History - General Information source: Patient - Social History Smoking Status: Current Every Day Smoker Frequency of alcohol use: None Drug Abuse: None Lives with: Family Family History: Reviewed & Not Pertinent Patient has suicidal ideation: No Patient has homicidal ideation: No - Past Medical History Cardiac Medical History: Denies: Hx Coronary Artery Disease, Hx Heart Attack, Hx Hypertension Pulmonary Medical History: Reports: Hx Asthma, Hx Pneumonia Denies: Hx Bronchitis, Hx COPD Neurological Medical History: Denies: Hx Cerebrovascular Accident, Hx Seizures Renal/ Medical History: Reports: Hx Kidney Stones. Denies: Hx Peritoneal Dialysis GI Medical History: Reports: Hx Diverticulitis, Hx Gastroesophageal Reflux D isease Musculoskeletal Medical History: Denies Hx Arthritis Past Surgical History: Reports: Hx Appendectomy, Hx Section, Hx Tubal Ligation. Denies: Hx Hysterectomy, Hx Pacemaker - Immunizations Hx Diphtheria, Pertussis, Tetanus Vaccination: Yes Review of Systems - Review of Systems Constitutional: No symptoms reported EENT: No symptoms reported Cardiovascular: No symptoms reported Respiratory: No symptoms reported Gastrointestinal: See HPI Genitourinary: No symptoms reported Female Genitourinary: No symptoms reported Musculoskeletal: No symptoms reported Skin: No symptoms reported Hematologic/Lymphatic: No symptoms reported Neurological/Psychological: No symptoms reported Physical Exam - Vital signs Vitals: Temp Pulse Resp BP Pulse Ox 98.2 F 92 18 136/67 H 98 04/20/19 18:58 04/20/19 18:58 04/20/19 18:58 04/20/19 18:58 04/20/19 18:58 - Notes Notes: GENERAL: Alert, interacts well. No acute distress. HEAD: Normocephalic, atraumatic. EYES: Pupils equal, round, and reactive to light. Extraocular movements intact. ENT: Oral mucosa moist, tongue midline. Oropharynx unremarkable. Airway patent. NECK: Full range of motion. Supple. Trachea midline. LUNGS: Clear to auscultation bilaterally, no wheezes, rales, or rhonchi. No respiratory distress. HEART: Regular rate and rhythm. No murmur ABDOMEN: Mild diffuse tenderness, slightly worse in the lower abdomen generally, patient complains more on the right side but this is not noted on exam. No guarding or rigidity. Otherwise unremarkable. GENITOURINARY: Deferred EXTREMITIES: Moves all 4 extremities spontaneously. No edema, normal radial and dorsalis pedis pulses bilaterally. No cyanosis. BACK: no cervical, thoracic, lumbar midline tenderness. No saddle anesthesia, normal distal neurovascular exam. Moves all extremities in full range of motion. NEUROLOGICAL: Alert and oriented x3. Normal speech. Cranial nerves II through XII grossly intact. PSYCH: Very talkative SKIN: Warm, dry, normal turgor. No rashes or lesions noted. Course - Re-evaluation Re-evalutation: CBC shows mild microcytic anemia, patient is already on iron. No leukocytosis, no fever, patient is almost 1 month postop appendectomy. She has generalized right-sided abdominal tenderness in the mid to lower abdomen without guarding. Her scars looks well-healed and no sign of any infection. Patient is well- appearing and alert, ambulates without difficulty. She was playing on her phone when I reentered the room, talking and smiling. Chemistry unremarkable, troponin is negative, urine shows elevated specific gravity. Acute abdominal series without any concerning findings. Appears to have a some retained stool. I discussed with patient and her mother who is now at bedside. Patient has an unremarkable abdomen on reexamination. She states that she feels the same way that she felt 1 month ago before she had the appendectomy. Appears to be chronic abdominal pain. Patient denies constipation, mom states she does have a lot of trouble moving her stools. I did discuss the possibility of a CAT scan because of the surgery a few weeks ago, however after discussing pros and cons this was deferred. I feel this is appropriate based on patient's benign work-up in appearance. Low suspicion of acute abdomen/abscess. Decision was made to treat her symptoms, placed on stool softener, have her follow-up with gastroenterology and her surgeon, and return precautions were discussed. Patient states understanding and agreement. - Vital Signs Vital signs: Temp Pulse Resp BP Pulse Ox 98.6 F 78 16 116/73 100 04/20/19 23:21 04/20/19 23:21 04/20/19 23:21 04/20/19 23:21 04/20/19 22:01 - Laboratory Result Diagrams: 04/20/19 20:00 04/20/19 20:00 Laboratory results interpreted by me: 04/20/19 04/20/19 04/20/19 20:00 20:00 20:36 Hgb 11.0 L Hct 34.7 L MCV 75 L MCH 23.7 L MCHC 31.6 L RDW 17.3 H AST 12 L Urine Urobilinogen 2.0 H - EKG Interpretation by Me Additional EKG results interpreted by me: EKG shows sinus rhythm at a rate of 86, QTC of 417, IA interval of 128, normal axis. No T wave inversions or ST segment changes in consecutive leads. Discharge - Discharge Clinical Impression: Abdominal pain Qualifiers: Abdominal location: generalized Qualified Code(s): R10.84 - Generalized a bdominal pain Chest pain Qualifiers: Chest pain type: unspecified Qualified Code(s): R07.9 - Chest pain, unspecified Condition: Stable Disposition: HOME, SELF-CARE Additional Instructions: Your work-up shows mild anemia, some retained stool, no other concerning findings at this time. Recommend a stool softener daily for the next few days as prescribed, take the Toradol if needed for pain, take the Pepcid with the Toradol if needed so you do not have upset stomach, take Bentyl if needed for abdominal cramping. Follow-up with your obiee report developer for additional management of ongoing abdominal pain. Return to the emergency department for any concerning worsening symptoms including fever, vomiting, severe worsening pain, or any other concerning or worsening symptoms. Prescriptions: Ketorolac Tromethamine [Toradol 10 mg Tablet] 10 mg PO Q8HP PRN #20 tablet PRN Reason: Dicyclomine HCl [Bentyl 20 mg Tablet] 20 mg PO QID PRN #20 tablet PRN Reason: Famotidine [Pepcid 20 mg Tablet] 20 mg PO BID #20 tablet Forms: Return to Work
[2019-04-20 20:56] LABS: APPEARANCE,URINE CLEAR; BILIRUBIN,URINE NEGATIVE (NEGATIVE); COLOR,URINE YELLOW; GLUCOSE, URINE NEGATIVE (NEGATIVE); KETONES,URINE NEGATIVE (NEGATIVE); LEUKOCYTE ESTERASE,URINE NEGATIVE (NEGATIVE); NITRITE,URINE NEGATIVE (NEGATIVE); PROTEIN,URINE NEGATIVE (NEGATIVE); URINE SPECIFIC GRAVITY 1.026
[2019-04-20] MEDS ORDERED: MORPHINE SULFATE 10 MG/ML INJ IV ONE (21:02)
[2019-04-20] MEDS ORDERED: ONDANSETRON HCL INJ/PF 4 MG/2 ML SDV IV ONE (21:02)
[2019-04-20] MEDS ORDERED: NORMAL SALINE 1000 ML 1,000 ML IV ONE (21:03)
--- NOTE | 2019-04-20 21:57 | RADIOLOGY REPORT (SQ) ---
EXAM DESCRIPTION: XR ABDOMEN 2 VIEWS SUPINE ERECT COMPLETED DATE/TME: 04/20/2019 21:03 CLINICAL HISTORY: abd pain/swelling COMPARISON: None FINDINGS: Supine and upright images of the abdomen were submitted. There is no free air in the abdomen. There is no evidence of bowel obstruction. IMPRESSION: No acute abnormalities.
--- NOTE | 2019-04-20 22:33 | EKG REPORT ---
SEVERITY:- BORDERLINE ECG - SINUS RHYTHM BORDERLINE T ABNORMALITIES, DIFFUSE LEADS : Confirmed by: Elizabeth Ham 20-Apr-2019 22:32:19
[2019-04-20] MEDS ORDERED: KETOROLAC TROMETHAMINE INJ/PF 30 MG/1 ML SDV IV ONE (22:38)
[2019-04-20 23:22] VITALS: BP 116/73
== END 2019-04-20 23:21 | disposition home or self-care (01) ==
LOC: ER 18:44
DX: R10.84 Generalized abdominal pain (principal); R10.817 Generalized abdominal tenderness; R07.9 Chest pain, unspecified; D50.9 Iron deficiency anemia, unspecified; F17.200 Nicotine dependence, unspecified, uncomplicated; J45.909 Unspecified asthma, uncomplicated; M79.89 Other specified soft tissue disorders; Z79.899 Other long term (current) drug therapy; Z90.49 Acquired absence of other specified parts of digestive tract; Z87.442 Personal history of urinary calculi; Z98.51 Tubal ligation status; Z88.0 Allergy status to penicillin; Z88.2 Allergy status to sulfonamides; Z88.8 Allergy status to other drugs, medicaments and biological substances; Z88.6 Allergy status to analgesic agent; Z91.012 Allergy to eggs
CPT/HCPCS: 93005; 99284; 96361; 96374; 96375; 36415; 82550; 83690; 85025; 81025; 80053; 81001; 84484; 74019; 71046; 93010; J1885; J2270; J2405; J7030